=== PATIENT | male | born 1995 | race Two or more races ===

== ENCOUNTER 2021-04-16 19:35 | Emergency (ER) | payer MEDICAID ==
[~2021-04-16] VITALS: Ht 182.9 cm; Wt 90.7 kg
--- NOTE | 2021-04-16 20:09 | NUR ---
PATIENT BIBS C/O SORE THROAT X1DAY WITH NAUSEA, VOMITTING AND A COUGH. PATIENT ALERT AND ORIENTED X3. AMBULATORY WITH NON LABORED BREATHING. PATIENT PLACED IN BED 07.
[2021-04-16] MEDS ORDERED: DEXAMETHASONE SOD PHOSPHATE 10 MG/ML VIAL ONE (20:54)
[2021-04-16] MEDS ORDERED: CEFTRIAXONE 1GM BAG (ER ONLY) 50 ML IV ONE (20:54)
[2021-04-16] MEDS ORDERED: LIDOCAINE VISCOUS 2% UD 15 ML UDC ONE (20:54)
[2021-04-16] MEDS ORDERED: ONDANSETRON HCL/PF 4 MG/2 ML VIAL ONE (20:54)
[2021-04-16] MEDS ORDERED: IV NS 0.9% 1,000 ML BAG IV ONE (21:00)
[2021-04-16] MEDS ORDERED: ONDANSETRON HCL/PF - ER 4 MG/2 ML VIAL IV ONE (21:00)
[2021-04-16] MEDS ORDERED: DEXAMETHASONE SOD PHOSPHATE 10 MG/ML VIAL IV ONE (21:00)
[2021-04-16] MEDS ORDERED: LIDOCAINE VISCOUS 2% UD 15 ML UDC MM ONE (21:00)
[2021-04-16] MEDS ORDERED: CEFTRIAXONE 1 G in IV D5W 50 ML IV ONE (21:00)
[2021-04-16 21:21] LABS: BASOPHILS # (AUTO) 0.1 K/uL (0.0-0.2); BASOPHILS % (AUTO) 0.5 % (0.0-2.0); EOSINOPHILS % (AUTO) 0.5 % (0.0-6.0); HEMATOCRIT 43 % (39-51); HEMOGLOBIN 14.6 g/dL (13.5-17.5); LYMPHOCYTES # (AUTO) 0.5 K/uL (0.8-4.8); LYMPHOCYTES % (AUTO) 3.3 % (20.0-44.0); MEAN CORPUSCULAR HGB CONC 34 g/dl (31.0-36.0); MEAN CORPUSCULAR VOLUME 87 fL (80-96); MONOCYTES # (AUTO) 0.6 K/uL (0.1-1.30); MONOCYTES % (AUTO) 4.4 % (2.0-12.0); NEUTROPHILS # (AUTO) 12.6 K/uL (1.8-8.9); NEUTROPHILS % (AUTO) 91.3 % (43.0-81.0); PLATELET COUNT (AUTO) 206 K/uL (150-450); RED BLOOD CELL COUNT(AUTO) 4.95 MIL/uL (4.5-6.0); WHITE BLOOD COUNT (AUTO) 13.8 K/uL (4.3-11.0)
[2021-04-16 21:32] LABS: CALCIUM, SERUM 8.5 mg/dL (8.5-10.1); CREATININE 0.9 mg/dL (0.6-1.3)
[2021-04-16 21:38] LABS: ALBUMIN 3.8 g/dL (3.4-5.0); BILIRUBIN,TOTAL 0.8 mg/dL (0.2-1.0); TOTAL PROTEIN, SERUM 7.2 g/dL (6.4-8.2)
[2021-04-16] MEDS ORDERED: AMOX-430 PO (22:37)
[2021-04-16] MEDS ORDERED: IBUP-1955 PO (22:37)
--- NOTE | 2021-04-16 22:43 | NUR ---
Patient discharged to home in stable condition. Written and verbal after care instructions given. Patient verbalizes understanding of instruction. RX GIVEN
[2021-04-16 22:44] VITALS: BP 130/76
== END 2021-04-16 22:45 | disposition home or self-care (01) ==
LOC: ER 19:38
DX: J02.9 Acute pharyngitis, unspecified (principal); R11.2 Nausea with vomiting, unspecified; K12.2 Cellulitis and abscess of mouth; Z60.2 Problems related to living alone
CPT/HCPCS: 36415; 80053; 85025; 96365; 96375; 99284; J0696 ×2; J1100; J2405 ×2; J7060